=== PATIENT | female | born 1960 | race Caucasian/White ===

== ENCOUNTER → 2017-05-04 | Outpatient (CLI) | payer OTHER ==
[~2017-05-04] MED LIST: (None)20 M1 PO; ALBU.083IS IH; ALBU90OI INH; ALBU90OI6 INH; AMOCLA500 PO; ATEN25 PO; Azithromycin500 MG PO; CALCAVITD PO; CALCAVITDA PO; CIPR500 PO; CYCL10 PO; DOXY100 PO; FLUSAL5005 INH; FURO20 PO; GUAI600T33 PO; HYDR1TAB94 PO; IBUP800 PO; INSDET100 SC; K-Dur20 MEQ PO; KETO10 PO; LEVFLO500 PO; LEVSOD125 PO; LEVSOD50 PO; LISI5 PO; METF500 PO; METF500C PO; MONT10T PO; NAPR500 PO; Norco 5-325 Ta1 EACH PO; PRED10; PRED20 PO; PROCODE120 PO; Percocet 5-3251 EACH PO; RANI150 PO; ROFL500T; TIOT18 INH; TUDORZA PRESS400 MCG; Ultram50 MG PO; ZOLP10 PO; [UNRECOGNIZED DRUG - OTHER] IM
[2017-05-04 18:30] LABS: Bilirubin, Urine Neg (Neg); Blood, Urine 5+ (Neg); Glucose Qualitative, Urine 2+ (Neg); Ketones, Urine Neg (Neg); Leukocyte Esterase, Urine Neg (Neg); Nitrite, Urine Neg (Neg); Protein, Urine 1+ (Neg); Specific Gravity, Urine 1.015 (1.003-1.022); Urobilinogen, Urine NORM (Normal); pH, Urine 6.5 (5.0-8.0)
[2017-05-04 18:46] LABS: Color, Urine Yellow (P-Yellow)
[2017-05-04 18:47] LABS: Appearance, Urine Clear (Clear); Bacteria Few /hpf; Red Blood Cells, Urine 50-100 /hpf (0-2); Squamous Epithelial Cells Few /hpf (Few); White Blood Cells, Urine 0-2 /hpf (0-5)
== END | disposition home or self-care (01) ==
LOC: LAB 18:12
PROVIDERS: Nurse Practitioner Family
DX: M25.551 Pain in right hip (principal); R31.9 Hematuria, unspecified
CPT/HCPCS: 81001

== ENCOUNTER → 2017-10-26 | Outpatient (CLI) | payer OTHER ==
[~2017-10-26] MED LIST changes: -Ultram50 MG PO
== END ==
LOC: PLD 07:42 → LAB SHORT 07:42
DX: N93.9 Abnormal uterine and vaginal bleeding, unspecified (principal)
CPT/HCPCS: 88305

== ENCOUNTER → 2017-10-26 | Outpatient (CLI) | payer OTHER ==
[2017-10-28 15:08] LABS: HPV 16 Negative (Negative); HPV 18 Negative (Negative); HPV OTHER HR TYPES Negative (Negative)
== END ==
LOC: LAB SHORT 13:46 → LAB UCHC 13:46
PROVIDERS: Registered Nurse Community Health
DX: Z12.4 Encounter for screening for malignant neoplasm of cervix (principal)
CPT/HCPCS: 87624; G0123

== ENCOUNTER 2018-01-13 09:17 | Emergency (ER) | payer OTHER ==
[~2018-01-13] VITALS: Ht 160 cm; Wt 140.2 kg
[2018-01-13] MEDS ORDERED: Ultram50 MG PO (11:04)
== END 2018-01-13 11:36 | disposition home or self-care (01) ==
LOC: ER 09:17
DX: S39.011A Strain of muscle, fascia and tendon of abdomen, initial encounter (principal); I10 Essential (primary) hypertension; J44.9 Chronic obstructive pulmonary disease, unspecified; Z87.891 Personal history of nicotine dependence; Z79.899 Other long term (current) drug therapy; Z79.51 Long term (current) use of inhaled steroids; Z79.4 Long term (current) use of insulin; X58.XXXA Exposure to other specified factors, initial encounter
CPT/HCPCS: 73502; 99283-25

== ENCOUNTER 2019-09-21 09:00 | Day surgery (SDC) | payer OTHER ==
[~2019-09-21] VITALS: Ht 162 cm; Wt 147.0 kg
[~2019-09-21 09:00] MED LIST changes: +BASAGLAR K100 UNIT/1 SC; +FLUT1DIS8 INH; +GABA300 PO; +LOSA25 PO; +Pravachol40 MG PO; +Ultram50 MG PO; +VITAMIN D350 MC2 PO
--- NOTE | 2019-09-21 09:46 | NUR ---
PT INTO [facility] VIA [employer]. History, Chart, Medications and Allergies reviewed before start of procedure.Patient confirms NPO status and agrees with scheduled surgery. Patient states colon prep results clear.
--- NOTE | 2019-09-21 10:03 | NUR ---
09/21/19 1003 Leon Blackwell History, Chart, Medications and Allergies reviewed before start of procedure.MONITOR INTACT WITH CONTINUOUS PULSE OXIMETRY AND INTERMITTENT BP.3-LEAD EKG REVIEWED WITH PHYSICIAN PRIOR TO START OF PROCEDURE.O2 VIA N/C INTACT THROUGHOUT SEDATION/PROCEDURE. See Anesthesia record.
--- NOTE | 2019-09-21 10:54 | NUR ---
Patient up to Ambulate independently. Gait steady. Discharge instructions reviewed with patient. Patient verbalizes understanding. Copy given to patient to take home. Discharged via wheelchair to private car for ride home.
== END 2019-09-21 23:05 | disposition home or self-care (01) ==
LOC: ORSCMMR 09:00 → ORD 10:15 → ORSCMMR 10:15
PROVIDERS: Internal Medicine Gastroenterology
PROC: 0DBN8ZX Excision of Sigmoid Colon, Via Natural or Artificial Opening Endoscopic, Diagnostic (ICD-10-PCS; principal; 2019-09-21 10:15)
PROC: 0DBH8ZX Excision of Cecum, Via Natural or Artificial Opening Endoscopic, Diagnostic (ICD-10-PCS; principal; 2019-09-21 10:15)
DX: R19.5 Other fecal abnormalities (principal); D12.0 Benign neoplasm of cecum; K63.5 Polyp of colon; K64.4 Residual hemorrhoidal skin tags; K64.8 Other hemorrhoids; J44.9 Chronic obstructive pulmonary disease, unspecified; Z99.81 Dependence on supplemental oxygen; I10 Essential (primary) hypertension; E11.9 Type 2 diabetes mellitus without complications; E03.9 Hypothyroidism, unspecified; E66.01 Morbid (severe) obesity due to excess calories; Z68.43 Body mass index [BMI] 50.0-59.9, adult; Z79.899 Other long term (current) drug therapy; Z79.4 Long term (current) use of insulin; Z79.84 Long term (current) use of oral hypoglycemic drugs
CPT/HCPCS: 82947; 88305; J2001; J2704; J7120

== ENCOUNTER 2020-03-17 13:35 | Emergency (ER) | payer OTHER ==
[~2020-03-17] VITALS: Ht 160 cm; Wt 147.4 kg
[2020-03-17 14:14] LABS: BASOPHILS ABSOLUTE AUTO 0.05 K/mm3 (0.00-0.23); BASOPHILS PERCENT AUTO 1 % (0-2); EOSINOPHILS ABSOLUTE AUTO 0.17 K/mm3 (0.00-0.68); EOSINOPHILS PERCENT AUTO 2 % (0-6); Hematocrit 38.1 % (33.0-51.0); IMMATURE GRAN ABSOLUTE AUTO 0.03 K/mm3 (0.00-0.10); IMMATURE GRAN PERCENT AUTO 0 % (0-1); LYMPHOCYTES ABSOLUTE AUTO 2.37 K/mm3 (0.84-5.20); LYMPHOCYTES PERCENT AUTO 23 % (21-46); MONOCYTES ABSOLUTE AUTO 0.63 K/mm3 (0.16-1.47); MONOCYTES PERCENT AUTO 6 % (4-13); Mean Corpuscular HGB 26.8 pg (26.0-34.0); Mean Corpuscular HGB Conc 28.9 g/dL (31.5-36.5); Mean Corpuscular Volume 93 fL (80-100); Mean Platelet Volume 9.6 fL (9.1-12.4); NEUTROPHILS ABSOLUTE AUTO 6.91 K/mm3 (1.96-9.15); NEUTROPHILS PERCENT AUTO 68 % (41-73); Platelet Count 282 K/mm3 (150-400); RDW Coefficient Variation 13.7 % (11.7-14.2); RDW Standard Deviation 46.5 fL (35.1-46.3); Red Blood Cell Count 4.11 M/mm3 (3.80-5.20); White Blood Cell Count 10.16 K/mm3 (4.00-11.30)
[2020-03-17 14:37] LABS: Alanine Aminotransfer (ALT/SGP 14 U/L (12-78); Albumin, Blood 3.2 g/dL (3.4-5.0); Albumin/Globulin Ratio 0.7 (0.8-1.8); Alk Phos 98 U/L (50-136); Anion Gap 6 mmol/L (6-16); Aspartate Aminotrans (AST/SGOT 13 U/L (12-37); Bilirubin, Total 0.4 mg/dL (0.1-1.0); Blood Urea Nitrogen 10 mg/dL (8-24); Bun/Creatinine Ratio 15.1 (12.0-20.0); CO2, Blood 34 mmol/L (21-32); Calcium, Blood 9.1 mg/dL (8.5-10.1); Chloride, Blood 97 mmol/L (98-108); Creatinine, Blood 0.66 mg/dL (0.40-1.00); Globulin, Blood 4.3 g/dL (2.2-4.0); Glomerular Filtration Rate >60 (60-); Glucose, Blood 180 mg/dL (70-99); Potassium, Blood 4.2 mmol/L (3.5-5.5); Sodium, Blood 137 mmol/L (136-145); Total Protein, Blood 7.5 g/dL (6.4-8.2); Troponin I <0.015 ng/mL (0.000-0.040)
== END 2020-03-17 15:28 | disposition home or self-care (01) ==
LOC: ER 13:35
PROVIDERS: Physician Assistant
DX: R07.89 Other chest pain (principal); I10 Essential (primary) hypertension; J44.9 Chronic obstructive pulmonary disease, unspecified; Z79.4 Long term (current) use of insulin; Z88.6 Allergy status to analgesic agent; Z79.899 Other long term (current) drug therapy; Z87.891 Personal history of nicotine dependence
CPT/HCPCS: 36415; 71046; 80053; 83880; 84484; 85025; 99285-25

== ENCOUNTER 2020-09-22 15:03 | Emergency (ER) | payer OTHER ==
[~2020-09-22] VITALS: Ht 160 cm; Wt 135.6 kg
[2020-09-22 16:57] LABS: BASOPHILS ABSOLUTE AUTO 0.04 K/mm3 (0.00-0.23); BASOPHILS PERCENT AUTO 0 % (0-2); EOSINOPHILS PERCENT AUTO 1 % (0-6); Hematocrit 39.8 % (33.0-51.0); Hemoglobin 11.9 g/dL (11.5-16.0); IMMATURE GRAN ABSOLUTE AUTO 0.03 K/mm3 (0.00-0.10); IMMATURE GRAN PERCENT AUTO 0 % (0-1); LYMPHOCYTES ABSOLUTE AUTO 2.61 K/mm3 (0.84-5.20); LYMPHOCYTES PERCENT AUTO 27 % (21-46); MONOCYTES ABSOLUTE AUTO 0.59 K/mm3 (0.16-1.47); MONOCYTES PERCENT AUTO 6 % (4-13); Mean Corpuscular HGB 27.2 pg (26.0-34.0); Mean Corpuscular HGB Conc 29.9 g/dL (31.5-36.5); Mean Corpuscular Volume 91 fL (80-100); Mean Platelet Volume 9.6 fL (9.1-12.4); NEUTROPHILS ABSOLUTE AUTO 6.47 K/mm3 (1.96-9.15); NEUTROPHILS PERCENT AUTO 66 % (41-73); Platelet Count 260 K/mm3 (150-400); RDW Coefficient Variation 13.2 % (11.7-14.2); RDW Standard Deviation 43.1 fL (35.1-46.3); Red Blood Cell Count 4.37 M/mm3 (3.80-5.20); White Blood Cell Count 9.84 K/mm3 (4.00-11.30)
[2020-09-22 17:29] LABS: Alanine Aminotransfer (ALT/SGP 16 U/L (12-78); Albumin, Blood 3.4 g/dL (3.4-5.0); Albumin/Globulin Ratio 0.7 (0.8-1.8); Alk Phos 98 U/L (50-136); Anion Gap 4 mmol/L (6-16); Aspartate Aminotrans (AST/SGOT 17 U/L (12-37); Bilirubin, Total 0.2 mg/dL (0.1-1.0); Blood Urea Nitrogen 14 mg/dL (8-24); CO2, Blood 35 mmol/L (21-32); Calcium, Blood 9.2 mg/dL (8.5-10.1); Chloride, Blood 98 mmol/L (98-108); Creatinine, Blood 0.58 mg/dL (0.40-1.00); Globulin, Blood 4.7 g/dL (2.2-4.0); Glomerular Filtration Rate >60 (60-); Glucose, Blood 174 mg/dL (70-99); Sodium, Blood 137 mmol/L (136-145); Total Protein, Blood 8.1 g/dL (6.4-8.2)
[2020-09-22] MEDS ORDERED: IBUP600 PO (19:23)
[2020-09-22] MEDS ORDERED: CYCL10 PO (19:23)
== END 2020-09-22 19:33 | disposition home or self-care (01) ==
LOC: ER 15:03
PROVIDERS: Physician Assistant
DX: M54.9 Dorsalgia, unspecified (principal); R05 Cough; J44.9 Chronic obstructive pulmonary disease, unspecified; E11.9 Type 2 diabetes mellitus without complications; I10 Essential (primary) hypertension; Z79.84 Long term (current) use of oral hypoglycemic drugs; Z79.899 Other long term (current) drug therapy
CPT/HCPCS: 36415; 71046; 80053; 85025; 99283-25; A9270

== ENCOUNTER 2020-12-04 20:43 | Emergency (ER) | payer OTHER ==
[~2020-12-04] VITALS: Ht 160 cm; Wt 131.1 kg
[~2020-12-04 20:43] MED LIST changes: +IBUP600 PO
[2020-12-04] MEDS ORDERED: HYDROCODONE-AC1 EA14 PO (22:22)
[2020-12-04] MEDS ORDERED: TRAM50 PO (22:26)
== END 2020-12-04 22:49 | disposition home or self-care (01) ==
LOC: ER 20:43
DX: M16.12 Unilateral primary osteoarthritis, left hip (principal); G89.29 Other chronic pain; I10 Essential (primary) hypertension; J44.9 Chronic obstructive pulmonary disease, unspecified; E78.5 Hyperlipidemia, unspecified; E11.9 Type 2 diabetes mellitus without complications; Z88.8 Allergy status to other drugs, medicaments and biological substances; Z79.899 Other long term (current) drug therapy; Z79.4 Long term (current) use of insulin; W19.XXXA Unspecified fall, initial encounter
CPT/HCPCS: 73502; 96372; 99283-25; J1885

== ENCOUNTER 2021-06-27 20:10 | Emergency (ER) | payer MEDICARE, OTHER ==
[~2021-06-27] VITALS: Ht 160 cm; Wt 158.8 kg
[~2021-06-27 20:10] MED LIST changes: +HYDROCODONE-AC1 EA14 PO; +TRAM50 PO
[2021-06-27 20:39] LABS: BASOPHILS ABSOLUTE AUTO 0.05 K/mm3 (0.00-0.23); BASOPHILS PERCENT AUTO 1 % (0-2); EOSINOPHILS ABSOLUTE AUTO 0.11 K/mm3 (0.00-0.68); EOSINOPHILS PERCENT AUTO 1 % (0-6); Hemoglobin 11.6 g/dL (11.5-16.0); IMMATURE GRAN ABSOLUTE AUTO 0.05 K/mm3 (0.00-0.10); IMMATURE GRAN PERCENT AUTO 1 % (0-1); LYMPHOCYTES ABSOLUTE AUTO 2.43 K/mm3 (0.84-5.20); LYMPHOCYTES PERCENT AUTO 26 % (21-46); MONOCYTES ABSOLUTE AUTO 0.57 K/mm3 (0.16-1.47); MONOCYTES PERCENT AUTO 6 % (4-13); Mean Corpuscular HGB Conc 30.5 g/dL (31.5-36.5); Mean Corpuscular Volume 92 fL (80-100); Mean Platelet Volume 9.6 fL (9.1-12.4); NEUTROPHILS ABSOLUTE AUTO 6.32 K/mm3 (1.96-9.15); NEUTROPHILS PERCENT AUTO 66 % (41-73); Platelet Count 243 K/mm3 (150-400); RDW Coefficient Variation 13.1 % (11.7-14.2); RDW Standard Deviation 43.3 fL (35.1-46.3); Red Blood Cell Count 4.15 M/mm3 (3.80-5.20); White Blood Cell Count 9.53 K/mm3 (4.00-11.30)
[2021-06-27 20:57] LABS: Alanine Aminotransfer (ALT/SGP 16 U/L (12-78); Albumin, Blood 3.6 g/dL (3.4-5.0); Albumin/Globulin Ratio 0.9 (0.8-1.8); Alk Phos 90 U/L (50-136); Anion Gap 4 mmol/L (6-16); Aspartate Aminotrans (AST/SGOT 9 U/L (12-37); Bilirubin, Total 0.4 mg/dL (0.1-1.0); Blood Urea Nitrogen 19 mg/dL (8-24); Bun/Creatinine Ratio 25.5 (12.0-20.0); CO2, Blood 37 mmol/L (21-32); Calcium, Blood 9.4 mg/dL (8.5-10.1); Chloride, Blood 99 mmol/L (98-108); Creatinine, Blood 0.75 mg/dL (0.40-1.00); Globulin, Blood 4.1 g/dL (2.2-4.0); Glomerular Filtration Rate >60 (60-); Glucose, Blood 194 mg/dL (70-99); Potassium, Blood 3.8 mmol/L (3.5-5.5); Sodium, Blood 140 mmol/L (136-145); Total Protein, Blood 7.7 g/dL (6.4-8.2)
[2021-06-27] MEDS ORDERED: Norco 5-325 Ta1 EACH PO (22:28)
[2021-06-27 22:49] LABS: Source, Urine Clean Catch
[2021-06-27 22:51] LABS: Bilirubin, Urine Neg (Neg); Blood, Urine 1+ (Neg); Glucose Qualitative, Urine 1+ (Neg); Ketones, Urine 1+ (Neg); Leukocyte Esterase, Urine Neg (Neg); Nitrite, Urine Neg (Neg); Protein, Urine 1+ (Neg); Urobilinogen, Urine 1+ (Normal)
[2021-06-27 22:58] LABS: Appearance, Urine Hazy (Clear); Color, Urine Yellow (P-Yellow)
[2021-06-27 22:59] LABS: Amorphous Light (0-Heavy); Bacteria Few /hpf; Calcium Oxalate Crystals Few /hpf; Red Blood Cells, Urine 0-2 /hpf (0-2); Squamous Epithelial Cells Mod /hpf (Few); White Blood Cells, Urine 0-2 /hpf (0-5)
== END 2021-06-27 23:41 | disposition home or self-care (01) ==
LOC: ER 20:10
PROVIDERS: Physician Assistant
DX: M16.0 Bilateral primary osteoarthritis of hip (principal); N20.0 Calculus of kidney; I10 Essential (primary) hypertension; J45.909 Unspecified asthma, uncomplicated; Z88.8 Allergy status to other drugs, medicaments and biological substances; Z79.899 Other long term (current) drug therapy; Z79.4 Long term (current) use of insulin
CPT/HCPCS: 36415; 74176; 80053; 81001; 83690; 85025; 99284-25; A9270

== ENCOUNTER 2021-10-21 14:45 | Emergency (ER) | payer MEDICARE, OTHER ==
[~2021-10-21] VITALS: Ht 160 cm; Wt 136.1 kg
== END 2021-10-21 16:11 | disposition home or self-care (01) ==
LOC: ER 14:45
DX: S53.401A Unspecified sprain of right elbow, initial encounter (principal); J44.9 Chronic obstructive pulmonary disease, unspecified; E78.5 Hyperlipidemia, unspecified; E11.9 Type 2 diabetes mellitus without complications; I10 Essential (primary) hypertension; Z79.899 Other long term (current) drug therapy; Z79.4 Long term (current) use of insulin; Z88.6 Allergy status to analgesic agent; W01.198A Fall on same level from slipping, tripping and stumbling with subsequent striking against other object, initial encounter
CPT/HCPCS: 73080; 99283-25

== ENCOUNTER 2021-10-25 14:59 | Emergency (ER) | payer MEDICARE, OTHER | END 2021-10-25 15:52 | disposition home or self-care (01) | LOC: ER 14:59 | DX: R51.9 Headache, unspecified (principal); W18.39XA Other fall on same level, initial encounter; J44.9 Chronic obstructive pulmonary disease, unspecified; E78.5 Hyperlipidemia, unspecified; E11.9 Type 2 diabetes mellitus without complications; I10 Essential (primary) hypertension; Z88.6 Allergy status to analgesic agent; Z79.4 Long term (current) use of insulin; Z79.899 Other long term (current) drug therapy ==

== ENCOUNTER 2021-10-26 15:48 | Emergency (ER) | payer MEDICARE, OTHER ==
[~2021-10-26] VITALS: Ht 160 cm; Wt 136.1 kg
[2021-10-26] MEDS ORDERED: ONDA4ODT MM (16:35)
== END 2021-10-26 16:40 | disposition home or self-care (01) ==
LOC: ER 15:48
DX: S06.0X0A Concussion without loss of consciousness, initial encounter (principal); J44.9 Chronic obstructive pulmonary disease, unspecified; E11.9 Type 2 diabetes mellitus without complications; I10 Essential (primary) hypertension; E78.5 Hyperlipidemia, unspecified; Z79.4 Long term (current) use of insulin; Z79.899 Other long term (current) drug therapy; Z88.8 Allergy status to other drugs, medicaments and biological substances; W18.09XA Striking against other object with subsequent fall, initial encounter
CPT/HCPCS: 99283

== ENCOUNTER 2021-11-04 11:00 | Emergency (ER) | payer MEDICARE, OTHER ==
[~2021-11-04] VITALS: Ht 160 cm; Wt 136.1 kg
[~2021-11-04 11:00] MED LIST changes: +ONDA4ODT MM
[2021-11-04 12:14] LABS: BASOPHILS ABSOLUTE AUTO 0.04 K/mm3 (0.00-0.23); BASOPHILS PERCENT AUTO 0 % (0-2); EOSINOPHILS PERCENT AUTO 1 % (0-6); Hematocrit 38.5 % (33.0-51.0); Hemoglobin 11.6 g/dL (11.5-16.0); IMMATURE GRAN ABSOLUTE AUTO 0.04 K/mm3 (0.00-0.10); IMMATURE GRAN PERCENT AUTO 0 % (0-1); LYMPHOCYTES ABSOLUTE AUTO 1.84 K/mm3 (0.84-5.20); LYMPHOCYTES PERCENT AUTO 17 % (21-46); MONOCYTES ABSOLUTE AUTO 0.69 K/mm3 (0.16-1.47); MONOCYTES PERCENT AUTO 7 % (4-13); Mean Corpuscular HGB 27.9 pg (26.0-34.0); Mean Corpuscular HGB Conc 30.1 g/dL (31.5-36.5); Mean Corpuscular Volume 93 fL (80-100); Mean Platelet Volume 9.3 fL (9.1-12.4); NEUTROPHILS ABSOLUTE AUTO 7.89 K/mm3 (1.96-9.15); NEUTROPHILS PERCENT AUTO 74 % (41-73); Platelet Count 266 K/mm3 (150-400); RDW Coefficient Variation 13.3 % (11.7-14.2); RDW Standard Deviation 44.9 fL (35.1-46.3); Red Blood Cell Count 4.16 M/mm3 (3.80-5.20)
[2021-11-04 12:23] LABS: Albumin, Blood 3.1 g/dL (3.4-5.0); Albumin/Globulin Ratio 0.7 (0.8-1.8); Bilirubin, Total 0.3 mg/dL (0.1-1.0); Bun/Creatinine Ratio 23.1 (12.0-20.0); Calcium, Blood 9.3 mg/dL (8.5-10.1); Creatinine, Blood 0.52 mg/dL (0.40-1.00); Globulin, Blood 4.4 g/dL (2.2-4.0); Potassium, Blood 4.3 mmol/L (3.5-5.5); Total Protein, Blood 7.5 g/dL (6.4-8.2)
== END 2021-11-04 16:20 | disposition home or self-care (01) ==
LOC: ER 11:00
PROVIDERS: Physician Assistant
DX: R42 Dizziness and giddiness (principal); J44.9 Chronic obstructive pulmonary disease, unspecified; E78.5 Hyperlipidemia, unspecified; E11.9 Type 2 diabetes mellitus without complications; I10 Essential (primary) hypertension; Z91.81 History of falling; Z88.6 Allergy status to analgesic agent; Z79.899 Other long term (current) drug therapy; Z79.4 Long term (current) use of insulin
CPT/HCPCS: 71046; 80053; 85025; 93005; 93010; A9270

== ENCOUNTER 2021-12-09 14:03 | Emergency (ER) | payer MEDICARE, OTHER ==
[~2021-12-09] VITALS: Ht 160 cm; Wt 1.4 kg
[~2021-12-09 14:03] MED LIST changes: -Pravachol40 MG PO; +Pravastatin Sod80 MG PO
[2021-12-09 17:09] LABS: BASOPHILS ABSOLUTE AUTO 0.03 K/mm3 (0.00-0.23); BASOPHILS PERCENT AUTO 0 % (0-2); EOSINOPHILS ABSOLUTE AUTO 0.07 K/mm3 (0.00-0.68); EOSINOPHILS PERCENT AUTO 1 % (0-6); Hematocrit 34.6 % (33.0-51.0); Hemoglobin 9.7 g/dL (11.5-16.0); IMMATURE GRAN ABSOLUTE AUTO 0.09 K/mm3 (0.00-0.10); IMMATURE GRAN PERCENT AUTO 1 % (0-1); LYMPHOCYTES ABSOLUTE AUTO 1.93 K/mm3 (0.84-5.20); LYMPHOCYTES PERCENT AUTO 17 % (21-46); MONOCYTES ABSOLUTE AUTO 0.77 K/mm3 (0.16-1.47); MONOCYTES PERCENT AUTO 7 % (4-13); Mean Corpuscular HGB 27.8 pg (26.0-34.0); Mean Corpuscular Volume 99 fL (80-100); Mean Platelet Volume 9.4 fL (9.1-12.4); NEUTROPHILS ABSOLUTE AUTO 8.34 K/mm3 (1.96-9.15); NEUTROPHILS PERCENT AUTO 74 % (41-73); Platelet Count 243 K/mm3 (150-400); Red Blood Cell Count 3.49 M/mm3 (3.80-5.20); White Blood Cell Count 11.23 K/mm3 (4.00-11.30)
[2021-12-09 17:48] LABS: Alanine Aminotransfer (ALT/SGP 29 U/L (12-78); Albumin/Globulin Ratio 0.8 (0.8-1.8); Alk Phos 89 U/L (50-136); Anion Gap Unable to Calculate mmol/L (6-16); Aspartate Aminotrans (AST/SGOT 12 U/L (12-37); Bilirubin, Total 0.2 mg/dL (0.1-1.0); Blood Urea Nitrogen 14 mg/dL (8-24); Bun/Creatinine Ratio 21.4 (12.0-20.0); Calcium, Blood 8.9 mg/dL (8.5-10.1); Chloride, Blood 94 mmol/L (98-108); Creatinine, Blood 0.65 mg/dL (0.40-1.00); Globulin, Blood 3.8 g/dL (2.2-4.0); Glomerular Filtration Rate 99 (60-); Glucose, Blood 221 mg/dL (70-99); Potassium, Blood 4.4 mmol/L (3.5-5.5); Sodium, Blood 139 mmol/L (136-145); Total Protein, Blood 6.8 g/dL (6.4-8.2)
[2021-12-09 17:50] LABS: CO2, Blood >45 mmol/L (21-32)
[2021-12-09 18:18] LABS: Percent Saturation 7.9 % (15.0-50.0)
[2021-12-09 18:49] LABS: Base Excess Venous 22.4 mmol/L; PCO2 Venous 94.1 mmHg (38-42); pH Blood Venous 7.32 (7.34-7.37)
[2021-12-11 09:25] LABS: HAPTOGLOBIN 307 mg/dL (37-355)
[2021-12-16 07:09] LABS: (LD) FRACTION 1 20 % (17-32); (LD) FRACTION 2 44 % (25-40); (LD) FRACTION 3 21 % (17-27); (LD) FRACTION 4 7 % (5-13); (LD) FRACTION 5 8 % (4-20); LDH 210 IU/L (119-226)
== END 2021-12-09 20:06 | disposition home or self-care (01) ==
LOC: ER 14:03
PROVIDERS: Family Medicine
DX: E87.22 Chronic metabolic acidosis (principal); E11.65 Type 2 diabetes mellitus with hyperglycemia; J44.9 Chronic obstructive pulmonary disease, unspecified; I10 Essential (primary) hypertension; Z88.8 Allergy status to other drugs, medicaments and biological substances; Z79.899 Other long term (current) drug therapy; Z79.4 Long term (current) use of insulin; Z79.890 Hormone replacement therapy; Z87.891 Personal history of nicotine dependence
CPT/HCPCS: 80053; 82728; 82803; 83010; 83036; 83540; 83550; 83615; 83625; 84443; 85025; 99285

== ENCOUNTER 2021-12-12 21:11 | Inpatient (IN) | payer MEDICARE, OTHER ==
[~2021-12-12] VITALS: Ht 160 cm; Wt 138.5 kg
[2021-12-12 21:59] LABS: BASOPHILS ABSOLUTE AUTO 0.06 K/mm3 (0.00-0.23); BASOPHILS PERCENT AUTO 0 % (0-2); EOSINOPHILS ABSOLUTE AUTO 0.04 K/mm3 (0.00-0.68); EOSINOPHILS PERCENT AUTO 0 % (0-6); Hematocrit 39.2 % (33.0-51.0); Hemoglobin 11.2 g/dL (11.5-16.0); IMMATURE GRAN PERCENT AUTO 2 % (0-1); LYMPHOCYTES ABSOLUTE AUTO 1.48 K/mm3 (0.84-5.20); LYMPHOCYTES PERCENT AUTO 11 % (21-46); MONOCYTES ABSOLUTE AUTO 0.85 K/mm3 (0.16-1.47); MONOCYTES PERCENT AUTO 6 % (4-13); Mean Corpuscular HGB 27.9 pg (26.0-34.0); Mean Corpuscular HGB Conc 28.6 g/dL (31.5-36.5); Mean Corpuscular Volume 98 fL (80-100); Mean Platelet Volume 9.1 fL (9.1-12.4); NEUTROPHILS ABSOLUTE AUTO 11.06 K/mm3 (1.96-9.15); NEUTROPHILS PERCENT AUTO 81 % (41-73); NRBC ABSOLUTE 0.05 K/mm3 (0.00-0.02); NRBC Auto 0.4 /100 WBC (0.0-0.2); Platelet Count 283 K/mm3 (150-400); RDW Coefficient Variation 15.2 % (11.7-14.2); RDW Standard Deviation 54.1 fL (35.1-46.3); Red Blood Cell Count 4.02 M/mm3 (3.80-5.20); White Blood Cell Count 13.69 K/mm3 (4.00-11.30)
[2021-12-12 22:19] LABS: Alanine Aminotransfer (ALT/SGP 48 U/L (12-78); Albumin, Blood 3.3 g/dL (3.4-5.0); Albumin/Globulin Ratio 0.7 (0.8-1.8); Alk Phos 121 U/L (50-136); Aspartate Aminotrans (AST/SGOT 26 U/L (12-37); Bilirubin, Total 0.6 mg/dL (0.1-1.0); Blood Urea Nitrogen 15 mg/dL (8-24); Bun/Creatinine Ratio 22.2 (12.0-20.0); Calcium, Blood 9.3 mg/dL (8.5-10.1); Chloride, Blood 88 mmol/L (98-108); Creatinine, Blood 0.68 mg/dL (0.40-1.00); Globulin, Blood 4.6 g/dL (2.2-4.0); Glomerular Filtration Rate 98 (60-); Glucose, Blood 301 mg/dL (70-99); Potassium, Blood 4.4 mmol/L (3.5-5.5); Sodium, Blood 135 mmol/L (136-145); Total Protein, Blood 7.9 g/dL (6.4-8.2)
[2021-12-12 22:20] LABS: Anion Gap Unable to Calculate mmol/L (6-16)
[2021-12-12 22:21] LABS: CO2, Blood >45 mmol/L (21-32)
[2021-12-12 23:02] LABS: Base Excess Venous 23.2 mmol/L; Bicarbonate Venous 43.7 mmol/L (24.0-30.0); PCO2 Venous 80.8 mmHg (38-42); pH Blood Venous 7.38 (7.34-7.37)
[2021-12-13 02:11] LABS: PO2 Arterial 99.3 mmHg (80-100)
[2021-12-13 02:13] LABS: pH Blood Arterial 7.24 (7.35-7.45)
[2021-12-13 02:14] LABS: PCO2 Arterial > 105 mmHg (35-45)
[2021-12-13 02:27] LABS: Source, Urine Straight Cath
[2021-12-13 02:29] LABS: Blood, Urine 3+ (Neg); Glucose Qualitative, Urine 2+ (Neg); Ketones, Urine 1+ (Neg); Leukocyte Esterase, Urine 3+ (Neg); Nitrite, Urine Neg (Neg); Protein, Urine 3+ (Neg); Specific Gravity, Urine 1.025 (1.003-1.022); Urobilinogen, Urine 1+ (Normal)
[2021-12-13 02:44] LABS: Appearance, Urine Hazy (Clear); Bilirubin, Urine 1+ (Neg); Color, Urine Amber (P-Yellow)
[2021-12-13 02:45] LABS: Amorphous Light (0-Heavy); Bacteria Mod /hpf; Hyaline Casts 25-50 /lpf (0-2); Mucus Heavy (0-Heavy); Squamous Epithelial Cells Not Seen /hpf (Few); White Blood Cells, Urine TNTC /hpf (0-5)
[2021-12-13 10:14] LABS: PCO2 Arterial 63.4 mmHg (35-45); PO2 Arterial 53.3 mmHg (80-100); pH Blood Arterial 7.48 (7.35-7.45)
--- NOTE | 2021-12-13 17:45 | NUR ---
SHIFT SUMMARY PT ALERT AND CONFUSED. PT ABLE TO GIVE NAME AND BUT UNABLE TO STATE WHAT FACILITY SHE IS IN EVEN AFTER BEING TOLD THAT SHE IS AT [facility] MULTIPLE TIMES THROUGHOUT THE DAY. PT HAS HAD SOME CONFUSION STATING "I DON'T KNOW WHO THESE GUYS ARE THAT ARE COMING IN HERE OFF THE STREET." WHEN ASKING WHO SHE IS REFERING TO, THE PT REPONDS "ALL THESE PEOPLE COMING IN HERE. THERE IS PEOPLE COMING IN HERE AND I DON'T WANT NO PART OF IT WITH THE HEAD DEIRDRE NOT BEING HERE." THIS RN ATTEMPTED TO REORIENT PT OF WHERE SHE IS BUT PT WAS FIXATED ON "THE PEOPLE I DON'T." THIS RN ASSURD PT THAT ONLY MEDICAL WILL BE ENTERING HER ROOM TO HELP HER. PT WAS ON BIPAP 35% THIS MORNING, TITRATED TO 4L NC WHICH IN HER BASE LINE, PT SATTING IN THE 90'S. PT HYPERTENSIVE THIS AM, BP'S STABLE THIS EVENING. OTHER VSS THROUGHOUT SHIFT.NO REPORT OF CHEST PAIN/PRESSURE THROUGHOUT SHIFT. PT HAD BEDBATH DONE AND PUREWIC CHANGED. DURING BEDBATH, PT FOUND TO BE INCONTINENT OF LIQUID STOOL.
[2021-12-13] MEDS ORDERED: LEVSOD25 PO (19:59)
[2021-12-13] MEDS ORDERED: AZIT250 PO (20:00)
[2021-12-13] MEDS ORDERED: MYRBETRIQ25 MG PO (20:03)
[2021-12-13] MEDS ORDERED: BUPR150ER PO (20:05)
--- NOTE | 2021-12-13 21:41 | NUR ---
SWITCHED TO BIPAP PT WAS ON 6L NC AND WHEN SLEEPING HER SPO2 DROPPED TO 74%. SHE WAS PLACED ON HER BIPAP @ 16/8 35% O2. SPO2 NOW >94%. PT IS RESTING, BED IN LOW, CALL LIGHT IN REACH, 3 SIDE RAILS UP.
--- NOTE | 2021-12-13 21:52 | NUR ---
HS GLUCOSE 368. DR. Hall CALLED AT 1945 AND INSULIN SWITCHED TO AC HS LOW SLIDING SCALE. 4 UNITS OF INSULIN WAS GIVEN.
--- NOTE | 2021-12-14 05:54 | NUR ---
SHIFT SUMMARY PT IS A&OX4, BUT ABOUT 0500 THIS AM THE PT BEGAN TO GET PARANOID. SHE WAS GETTING IRRITABLE ABOUT PEOPLE COMING IN HER ROOM AND DOING THINGS. SHE HAS BEEN SLEEPING MOST OF THE NIGHT WHILE ON THE CPAP. SHE IS CURRENTLY ON 3L NC W/ SPO2 @ 95% BECAUSE SHE WANTED A BEAK FROM THE HIGH PRESSURE. SHE HAS BEEN HYPERTENSIVE T/O THE SHIFT AND AN ORDER OF 10MG HYDRALAZINE IV WAS GIVEN. PT BP HAS GONE DOWN SLIGHTLY. PT IS ON BEDREST, Q2 TURNS IN BED, ON AN ADA DIET, AC/HS GLUCOSE CHECKS, AND HAS BEEN CALLING [employer] T/O THE NIGHT. WILL CONTINUE TO MONITOR UNTIL REPORT IS GIVEN TO THE ONCOMING SHIFT RN. SEE NOTES FOR UPDATES.
--- NOTE | 2021-12-14 06:22 | NUR ---
PER PT REQUEST SHE WAS PUT BACK ON THE BIPAP. SPO2 >93%.
--- NOTE | 2021-12-14 10:28 | NUR ---
AM NOTE: PATIENT ALERT AND ORIENTED X3-4. ABLE TO ANSWER ALL QUESTIONS APPROPRIATELY. NUMBNESS TO BILATERAL FEET, CHRONIC NEUROPATHY. OVERALL WEAK. BEDREST AT THIS TIME. Q2 TURNING IN PLACE. ON 4L NASAL CANNULA SATING MID 90'S. WEARING BIPAP WHEN SLEEPING. SOB WHEN TALKING. LUNGS SOUNDING CLEAR AND DIM. TELE SHOWING SINUS RHYTHM WITH HR 80-90'S. DENIES CHEST PAIN/PRESSURE. BP ELEVATED THIS AM, HOME MEDS ORDERED. PHOTOGRAPHIC RESTORER IN ROOM AT THIS TIME. DENIES ABDOMINAL PAIN/NAUSEA. EATING WELL. PUREWICK IN PLACE CHANGED THIS AM. ANDIE CARE COMPLETED. SKIN FOLDS RED, CLEANED AND POWDERED. CALL LIGHT IN REACH. WILL CONTINUE TO MONITOR.
--- NOTE | 2021-12-14 11:29 | NUR ---
AFTERNOON BP ELEVATED WELL BLOOD SUGAR. THIS RN PLACED CALL TO DR. LOUIS. ORDERS TO UPGRADE SHORT ACTING INSULIN TO MEDIUM CORRECTION SLIDING SCALE. ORDERS IN PLACE. NO NEW ORDERS FOR THIS RN REGARDING BP. PATIENT SLEEPING AT THIS TIME WITH BIPAP IN PLACE. ECHO COMPLETED.
--- NOTE | 2021-12-14 18:07 | NUR ---
SHIFT SUMMARY: NO ACUTE CHANGES THROUGHOUT SHIFT. SEE PREVIOUS NOTE FOR UPDATES. BP IMPROVED THROUGHOUT SHIFT. DENIES CHEST PAIN/PRESSURE. TELE CONTINUES TO SHOW SINUS RHYTHM 80-90'S. ON 4L NASAL CANNULA MOST OF SHIFT SATING MID-HIGH 90'S. WEARING BIPAP WHEN SLEEPING. DENIES ABDOMINAL PAIN/NAUSEA. TOLERATING PO DIET. PUREWICK IN PLACE. Q2 TURNING. ACHS BLOOD SUGARS. CALL LIGHT IN REACH. WILL CONTINUE TO MONITOR AND REPORT OFF TO ONCOMING RN.
[2021-12-15 04:23] LABS: Base Excess Venous 21.9 mmol/L; Bicarbonate Venous 41.4 mmol/L (24.0-30.0); PCO2 Venous > 105 mmHg (38-42); pH Blood Venous 7.25 (7.34-7.37)
[2021-12-15 04:31] LABS: Hematocrit 40.8 % (33.0-51.0); Hemoglobin 11.3 g/dL (11.5-16.0); Mean Corpuscular HGB 27.4 pg (26.0-34.0); Mean Corpuscular HGB Conc 27.7 g/dL (31.5-36.5); Mean Corpuscular Volume 99 fL (80-100); Mean Platelet Volume 9.2 fL (9.1-12.4); Platelet Count 275 K/mm3 (150-400); RDW Coefficient Variation 15.2 % (11.7-14.2); RDW Standard Deviation 55.9 fL (35.1-46.3); Red Blood Cell Count 4.13 M/mm3 (3.80-5.20); White Blood Cell Count 7.22 K/mm3 (4.00-11.30)
--- NOTE | 2021-12-15 04:45 | NUR ---
CALLED DR. KEITH IN [facility] TO CRITICAL VBG RESULTS. PT WAS PLACED BACK ON BIPAP AND REPEAT VBG WAS ORDERED FOR 829
[2021-12-15 05:06] LABS: Blood Urea Nitrogen 22 mg/dL (8-24); Bun/Creatinine Ratio 34.8 (12.0-20.0); Calcium, Blood 8.1 mg/dL (8.5-10.1); Chloride, Blood 91 mmol/L (98-108); Creatinine, Blood 0.63 mg/dL (0.40-1.00); Glomerular Filtration Rate 100 (60-); Glucose, Blood 294 mg/dL (70-99); Potassium, Blood 5.3 mmol/L (3.5-5.5); Sodium, Blood 141 mmol/L (136-145)
[2021-12-15 05:07] LABS: Anion Gap Unable to Calculate mmol/L (6-16); CO2, Blood >45 mmol/L (21-32)
--- NOTE | 2021-12-15 06:04 | NUR ---
SHIFT SUMMARY PT IS A&OX4, Q2 TURN, HAS A PURWICK THAT HAS BEEN CHANGED AT THE BEGINING OF THE SHIFT, AND SHE WAS ON 4-6L NC T/O MOST OF THE NIGHT. SHE WAS ON AND OFF THE BIPAP, BUT AFTER RECIEVING VBG LABS, PH 7.25 C02 >105 HCO3 41.4, SHE NEEDS TO STAY ON THE BIPAP. REPEAT VBG IS ORDERED FOR 0830 TODAY. SHE IS ON 18/8 @ 35% FOR BIPAP SETTINGS. PT VS HAVE BEEN STABLE, SHE SLEPT MOST OF THE NIGHT, AND SHE HAS HAD NO COMPLAINTS T/O THE NIGHT. DURING HS GLUCOSE CHECK SHE NEEDED 1 UNIT OF INSULIN FOR A CBG OF 261 ON AM LABS IT WAS 294. WILL CONTINUE TO MONITOR UNTIL REPORT IS GIVEN TO THE ONCOMING SHIFT RN. SEE NOTES FOR UPDATES.
--- NOTE | 2021-12-15 06:24 | NUR ---
TERESA WAS CHANGED THIS AM AT ABOUT 0550 FOR THE SECOND TIME
[2021-12-15 08:04] LABS: Base Excess Venous 22.5 mmol/L; Bicarbonate Venous 42.7 mmol/L (24.0-30.0); PCO2 Venous 87.8 mmHg (38-42); pH Blood Venous 7.35 (7.34-7.37)
--- NOTE | 2021-12-15 17:03 | NUR ---
CARE NOTE PT HAS REMAINED ALERT AND ORIENTED X 4, SHE USES THE CALL LIGHT APPROPRIATELY AND IS ABLE TO FOLLOW DIRECTION. BP AND HR STABLE. SPO2 >95% VIA BIPAP, PRESSURE 18/8 W/ FIO2 @35%. SHE HAS HAD INTERMITTENT BREAKS FROM BIPAP AND BEEN PLACED ON 4L VIA NC, SPO2 93-95% ON NC. BREAKS HAVE BEEN FOR EATING/DRINKING AND TAKING ORAL MEDICATIONS. SHE HAS DENIED FEELING OF CHEST PAIN/PRESSURE, LIGHTHEADEDNESS/DIZZINESS. NO COUGH NOTED. SHE REPORTS BILATERAL LOWER EXTREM NEUROPATHY AND TINGLING WHICH CAN BE PAINFUL PER PT REPORT. POWERGLIDE IN LUE IS SALINE LOCKED. PURE WICK IS PATENT AND CONNECTED TO SUCTION DUE TO INCONTINENCE/DIURESING. SOMNOLENCE HAS IMPROVED DURING SHIFT, PT HAS REMAINED AWAKE FOR MAJORITY OF SHIFT. SEE LABS FOR PCO2 TRENDS. PT IS NOW WATCHING TV, CALL LIGHT IS WITHIN REACH, BED IN LOW. WILL CONTINUE TO MONITOR UNTIL REPORT GIVEN.
--- NOTE | 2021-12-15 21:23 | NUR ---
CARE ASSUMPTION: PATIENT SITTING UP IN BED WITH BIPAP IN PLACE, O2 SATS >94%. PATIENT REQUESTS WATER AND TO BRUSH TEETH. DENIES CHEST PAIN/N/V/D. CBG 275. MEDICATED PER EMAR. PATIENT UPSET BECAUSE SHE STATES SHE ANGELIC IN A WHITE EXTENSION CORD AND STAFF SENT IT TO [facility]. [facility] STAFF UNAWARE OF THIS AND CANNOT FIND EXTENSION CORD. BED LOW WITH CALL LIGHT IN REACH.
[2021-12-16 05:05] LABS: Albumin, Blood 2.9 g/dL (3.4-5.0); Blood Urea Nitrogen 24 mg/dL (8-24); Bun/Creatinine Ratio 38.6 (12.0-20.0); Calcium, Blood 9.2 mg/dL (8.5-10.1); Chloride, Blood 86 mmol/L (98-108); Creatinine, Blood 0.62 mg/dL (0.40-1.00); Glomerular Filtration Rate 101 (60-); Glucose, Blood 294 mg/dL (70-99); Phosphorus, Blood 3.7 mg/dL (2.5-4.9); Potassium, Blood 4.8 mmol/L (3.5-5.5); Sodium, Blood 136 mmol/L (136-145)
[2021-12-16 05:07] LABS: Anion Gap Unable to Calculate mmol/L (6-16); CO2, Blood >45 mmol/L (21-32)
[2021-12-16 05:14] LABS: PCO2 Arterial 79.6 mmHg (35-45); PO2 Arterial 75.6 mmHg (80-100)
--- NOTE | 2021-12-16 05:36 | NUR ---
SHIFT SUMMARY: PATIENT A&O X4, DENIES CHEST PAIN/N/V/D, PUREWICK IN PLACE DRAINING TO SUCTION. PATIENT HAS KEPT BIPAP IN PLACE WITH 5-15 MIN BREAK TO DRINK WATER OR TAKE MEDICATIONS. VS WNL, AFEBRILE, O2 SATS >92% ON BIPAP 18/8 FIO2 35%. NO ADVERSE EVENTS THIS SHIFT. PATIENT USES CALL LIGHT APPROPRIATELY. BED LOW WITH CALL LIGHT IN REACH. PUREWICK CHANGED X2. WILL CONTINUE TO MONITOR UNTIL AM SHIFT CHANGE AND REPORT GIVEN.
--- NOTE | 2021-12-16 17:37 | NUR ---
END OF SHIFT NOTE PT A&O X4. VSS. SPO2 > 92% ON 2-4L NC W/ PT REPORT OF 4L NC @ BASELINE. MONITOR SHOWING SR-ST, HR 70s-110s. PT 2 PERSON ASSIST OOB. PUREWICK DRAINING CLEAR YELLOW URINE. NO EVENTS THIS SHIFT.
--- NOTE | 2021-12-17 03:41 | NUR ---
CARE ASSUMPTION: PATIENT ON 4L NC O2 SATS > 95%. AFEBRILE, VS WNL, DENIES CHEST PAIN/SOB/N/V/D. PATIENT REQUESTS BED BATH AND THEN DECLINES LATER. PATIENT IS WIPED DOWN, NEW BEDDING PLACED, AND ATTENDS CHANGED. PUREWICK DRAINING TO SUCTION. PATIENT SLEEPING WITH BIPAP IN PLACE FROM 2229 TO CURRENT. MEDICATED PER EMAR. BED LOW WITH CALL LIGHT IN REACH.
--- NOTE | 2021-12-17 06:04 | NUR ---
SHIFT SUMMARY: VS WNL ON BIPAP/4L NC. PATIENT SLEPT WITH BIPAP IN PLACE T/O NOC. MEDICATED PER EMAR. PATIENT ASSISTED WITH REPOSITIONING AT 0500 - FULL BED CHANGE. USES CALL LIGHT APPROPRIATELY. POWERGLIDE PATENT AND DRAWS. PUREWICK CHANGED PER PROTOCOL. NO ADVERSE EVENTS THIS SHIFT. BED LOW WITH CALL LIGHT IN REACH. WILL CONTINUE TO MONITOR UNTIL REPORT GIVEN TO AM RN.
[2021-12-17 06:13] LABS: Albumin, Blood 2.8 g/dL (3.4-5.0); Anion Gap 5 mmol/L (6-16); Blood Urea Nitrogen 25 mg/dL (8-24); Bun/Creatinine Ratio 40.5 (12.0-20.0); CO2, Blood 44 mmol/L (21-32); Calcium, Blood 9.3 mg/dL (8.5-10.1); Chloride, Blood 88 mmol/L (98-108); Creatinine, Blood 0.62 mg/dL (0.40-1.00); Glomerular Filtration Rate 101 (60-); Glucose, Blood 266 mg/dL (70-99); Potassium, Blood 4.6 mmol/L (3.5-5.5); Sodium, Blood 137 mmol/L (136-145)
--- NOTE | 2021-12-17 17:09 | NUR ---
END OF SHIFT NOTE / MEDICAL STATUS PT A&O X4. VSS. SPO2 > 92% ON 2-4L NC. PT MADE MEDICAL NO TELE STATUS TODAY. MONITOR SHOWING NSR PRIOR TO TELEMETRY REMOVAL. PT UP TO CHAIR W/ 1 PERSON ASSIST. PUREWICK REMOVED.
--- NOTE | 2021-12-18 06:36 | NUR ---
SHIFT SUMMARY PT IS A&OX4, NEEDS MIN ASSISTANCE MOVING IN BED, HAS A PURWICK THAT WAS CHANGED THIS AM ABOUT 0500, AND HAS HAS NO COMPLAINTS THIS SHIFT. PT HAS BEEN BETWEEN 4-5L NC AND HER BIPAP 18/8 @ 35% TONIGHT. SHE DESATURATED TO THE 80'S WHEN TAKING HER MEDICATIONS, BUT RECOVERED AFTER A FEW DEEP BREATHS. OTHER THEN THE ONE DESATURATION SHE KEPT HER SP02 >90%. SHE HAS SLEPT MOST OF THE NIGHT, HAS HER BED IN LOW, AND HER CALL LIGHT IS IN REACH. WILL CONTINUE TO MONITOR UNTIL REPORT IS GIVEN TO TO THE ONCOMING SHIFT RN. SEE NOTES FOR UPDATES.
--- NOTE | 2021-12-18 18:34 | NUR ---
END OF SHIFT NOTE PT CONTINUES MEDICAL NO TELE STATUS. A&O X4. VSS. SPO2 > 92% ON HOME USE OF 4L NC. BIPAP AT BEDSIDE FOR NOC USE. PT MORE MOBILE IN RM, STRENGTH IMPROVING. PT AWAITING DELIVERY OF TRILOGY FOR HOME USE. PT ALSO AWAITING SNF PLACEMENT.
--- NOTE | 2021-12-19 04:44 | NUR ---
SHIFT SUMMARY & TRANSFER PT ARRIVED FROM PCU AT APPROX 0400, RCVD REPORT FROM FERMIN CALLEJAS IN PCU. SHE IS HERE FOR ACUTE ON CHRONIC RESP FAILURE AND AMS, PER PCU REPORT THE AMS HAS IMPROVED GREATLY SINCE MAINTANING O2 SATS. PT IS CONT/INCONT AND WAS CLEANED AND CHANGED AFTER ARRIVAL. PT IS ON 3L O2 AND IS MAINTANING SAT > 92 ON CONTINOUS OXIMETRY. PT IS CURRENTLY AOX4, WIDE AWAKE AND RESTING COMFORTABLY IN HER BED. PT IS PLEASANT AND COOPERATIVE WITH CARE.
--- NOTE | 2021-12-19 18:01 | NUR ---
SHIFT SUMMARY PATIENT DENIES PAIN, NAUSEA, AND SHORTNESS OF BREATH. PATIENT IS A SBA WITH A FWW. PATIENT IS ON 3L VIA N/C. PATIENT MAINTAINS SATURATIONS ABOVE 90%. PATIENT WEARS CPAP AT NIGHT. PATIENT WORKED WITH PT TODAY. RECOMMENDING SNF. PATIENT INSULIN CHANGED DUE TO HIGH CBG. POWERGLIDE TO NORIS. PATIENT IS EATING AND DRINKING WELL. PATIENT IS PLEASANT AND COOPERATIVE WITH CARE.
--- NOTE | 2021-12-20 07:31 | NUR ---
SHIFT SUMMARY PT REPORTED SHE HAD HER FIRST BM IN A WHILE EARLY IN THE NIGHT. SHE WAS ON 3L O2 AND CONTINUOUS O2 MONITORING. PER DAY NURSE SHE WAS CLEARED BY PT TO BE INDEPENDENT IN THE ROOM USING HER FWW. DURING ONE TRIP TO THE BATHROOM SHE DESATTED TO THE MID 80'S, INCREASED HER O2 TO 4L DURING AMBULATOIN. PT WORE CPAP AT NIGHT WHILE ALSEEP AND MAINTANED O2 SAT > 90%. PT SLEPT WELL W/O MOST OF THE NIGHT. NO ACUTE EVENTS, VSS, PT PLEASANT AND COOPERATIVE WITH CARE.
--- NOTE | 2021-12-20 08:00 | NUR ---
pt sitting up in chair, a/ox3, pleasant and cooperative with care, follows commands well, denies pain, states she's slowly improving, lungs are clear dim in bases, resp even and unlabored, no cough noted, currently on 4 liters 02 via n/c, hrr, no edema noted, ppp+1, cap refill <3sec, vs stable, afebrile, iv is power glide to jolene, site is clear and patent, btx4, abd flat soft nontender, voids without diff, skin c/w/d, maew, low, desats with activity, call light in reach. takes po meds without diff.
[2021-12-20 14:41] LABS: Bun/Creatinine Ratio 43.1 (12.0-20.0); Calcium, Blood 9.1 mg/dL (8.5-10.1); Creatinine, Blood 0.74 mg/dL (0.40-1.00); Potassium, Blood 4.7 mmol/L (3.5-5.5)
--- NOTE | 2021-12-20 18:29 | NUR ---
pt sitting up on the side of the bed eating dinner, her son came to visit, she was excited about that, ambulating to the bathroom, with a walker pretty well, no further changes this shift. call light in reach.
--- NOTE | 2021-12-21 04:48 | NUR ---
SHIFT SUMMARY; PT IS AXO X4. PT WAS ON 4L NC SATING 93-95% UNTIL BEDTIME WHEN HER CPAP WAS PUT INTO PLACE. OVERNIGHT THE PT'S OXYGEN SATURATION REMAINED >90%. THE PT IS KIND TOWARD STAFF AND COOPERATIVE WITH CARE. PT IS A STAND BY ASSIST WITH THE USE OF A FWW WHILE AMBULATING. PT IS CONTINENT WITH INTERMITTEN INCONTINECE R/T COUGHING OR CERTAIN POSITION CHANGES. PT MEDICATED PER EMAR FOR HIP PAIN AROUND 0000. PT CURRENTLY WAITING ON TRILLOGY AND THEN DC PLACEMENT TO SNIFF. PT IS CURRENTLY RESTING IN BED SLEEPING WITH THE BED IN THE LOWEST POSITION AND THE CALL LIGHT IN REACH. NO ACUTE MEDICAL CHANGES OVERNIGHT.
--- NOTE | 2021-12-21 07:44 | NUR ---
pt sitting up in bed watching tv, states she feels pretty good this am, slept ok last night, breathing is ok, currently on 4 liters 02 via n/c, denies cough, lungs have a faint exp wheeze t/o, dim in bases, resp even and unlabored, hrr, radial and ppp+2, cap refill <3sec, vs stable, afebrile, iv is power glide to jolene will remove today, btx4, abd flat soft nonteder, voids without diff, has bouts of stress incont, reports bm a few days ago but is on laxatives, and this is normal for her, skin c/w/d, crystal, uses a front wheeled walker to ambulate with sba, gait noted to be steady, low, call light in reach.
--- NOTE | 2021-12-21 11:17 | NUR ---
removed pt power glide per orders. iv intact, dressed with 2x2 and coban after holding pressure. pt sitting up in a chair, tolerated well. call light in reach.
--- NOTE | 2021-12-21 18:04 | NUR ---
pt up and down in room indep, doing well, states she's feeling good, no complaints or acute changes this shift, call light in reach.
--- NOTE | 2021-12-22 04:40 | NUR ---
SHIFT SUMMARY; PT GOT UP TWICE INDEPENDENTLY THIS SHIFT TO AMBULATE TO THE RESTROOM WITH THE USE OF A FWW. THE PT REMAINS OF 4L NC AT BASELINE. THE PT DID HAVE A ACCIDENT AROUND 0330 THAT REQUIRED A BED CHANGE. THE PT IS CURRENTLY RESTING IN BED, THE BED IS IN THE LOWEST POISTION AND CALL LIGHT IS WITHIN REACH. NO ACUTE MEDICAL CHANGES THROUGHOUT THE ENTIRE SHIFT. HAND OFF REPORT TO FOLLOW TO THE ONCOMING RN.
--- NOTE | 2021-12-23 04:40 | NUR ---
SHIFT SUMMARY PATIENT IS ALERT AND ORIENTED. PATIENT HAS HAD NO ACUTE EVENTS THIS SHIFT. VITAL SIGNS REVIEWED. PATIENT HAS BEEN RESTING COMFORTABLY MOST OF SHIFT. PATIENT HAS NOT HAD ANY COMPLAINTS OF PAIN, NAUSEA, VOMITTING OR SOB THIS SHIFT. BED IN LOWEST AND LOCKED POSITION. CALL LIGHT IN PLACE. WILL MONITOR UNTIL SHIFT CHANGE.
--- NOTE | 2021-12-23 18:40 | NUR ---
SHIFT SUMMARY PT UP TO BATHROOMM INDEPENDENTLY USING FWW. RESTING ON AND OFF. NO REPORTS OF RESP DISTRESS. CONTINUOUS PULSE OX ON AND REMOVES IT WHEN UP TO BATHROOM. AWAITNG PLACEMENT WITH TRILOGY.
--- NOTE | 2021-12-24 04:17 | NUR ---
SHIFT SUMMARY PATIENT IS ALERT AND ORIENTED. PATIENT HAS HAD NO COMPLAINTS OF NAUSEA, SOB OR VOMMITTING THIS SHIFT. PATIENT HAS COMPLAINED OF PAIN AND MEDICATED PER EMAR. VITAL SIGNS REVIEWED. PATIENT HAS BEEN RESTING COMFORTABLY WITH CPAP ON MOST OF NIGHT. BED IN LOCKED AND LOWEST POSITION. CALL LIGHT IN PLACE. WILL MONITOR UNTIL SHIFT CHANGE.
--- NOTE | 2021-12-24 19:48 | NUR ---
SHIFT SUMMARY 61-YEAR-OLD FEMALE HERE WITH ACUTE RESPIRATORY, REPORTS DOING MUCH BETTER. SOB WITH EXERTION, 4L NC. A&O X4, INDEPENDENT. URGE INCONTINENT. CBG'S AC/HS. CONTINUE TO MONITOR.
--- NOTE | 2021-12-25 04:45 | NUR ---
SHIFT SUMMARY; NO ACUTE MEDICAL CHANGES OVERNIGHT. THE PT GOT UP TO USE THE RESTROOM A FEW TIMES THROUGHOUT THE NIGHT AND TWICE SHE HAD EPISODES OF URGE INCONTINENCE. PT REPORTED HIP PAIN AROUND 2245, MEDICATED PER EMAR. PT WAS ABLE TO SLEEP SOUNDLY WITH NO S/SX OF ANY BREAKTHROUGH PAIN. PT CURRENTLY RESTING IN BED, BIPAP ON AND CONTINOUS BIOX ON. THE PT SATED 95-97% THROUGHOUT THE NIGHT. BED IN THE LOWEST POSITION AND CALL LIGHT IN HAND.
--- NOTE | 2021-12-25 18:17 | NUR ---
SHIFT SUMMARY PATIENT HAS BEEN COOPERATIVE AND PLEASENT WITH CARE. PATIENT HAS BEEN IND THIS SHIFT. PATIENT HAD TRILOGY MACHINE DELIVERED THIS SHIFT. PATIENT HAS NOT COMPLAINED OF PAIN, NAUSEA, SOB, OR VOMITTING THIS SHIFT. PATIENT HAS NOT HAD ACUTE EVENTS THIS SHIFT. VITAL SIGNS REVIEWED. BED IN LOWEST AND LOCKED POSITION. CALL LIGHT IN PLACE. WILL MONITOR UNTIL SHIFT CHANGE.
[2021-12-26 05:24] LABS: Albumin, Blood 2.7 g/dL (3.4-5.0); Anion Gap 3 mmol/L (6-16); Blood Urea Nitrogen 15 mg/dL (8-24); Bun/Creatinine Ratio 24.5 (12.0-20.0); CO2, Blood 43 mmol/L (21-32); Calcium, Blood 8.7 mg/dL (8.5-10.1); Chloride, Blood 95 mmol/L (98-108); Creatinine, Blood 0.61 mg/dL (0.40-1.00); Glomerular Filtration Rate 101 (60-); Glucose, Blood 105 mg/dL (70-99); Phosphorus, Blood 3.6 mg/dL (2.5-4.9); Potassium, Blood 3.7 mmol/L (3.5-5.5); Sodium, Blood 141 mmol/L (136-145)
--- NOTE | 2021-12-26 06:52 | NUR ---
SHIFT SUMMARY PATIENT ALERT AND ORIENTED. MEDICATED PER EMAR FOR PAIN. MEDICATED PER EMAR FOR PAIN. NO ACUTE ISSUES NOTED OVERNIGHT. CALL LIGHT WITHIN REACH. REPORT GIVEN TO ONCOMING RN.
--- NOTE | 2021-12-26 17:52 | NUR ---
SHIFT SUMMARY PATIENT IS ALERT AND ORIENTED. PATIENT HAS BEEN IND IN ROOM. PATIENT IS STILL ON 4L NC. BIPAP AT NIGHT. AWAITING PLACEMENT. PATIENT HAS BEEN ABOVE 95 PERCENT ON CONTINUOUS BIOX. NO ACUTE EVENTS THIS SHIFT. VITAL SIGNS REVIEWED. PATIENT HAS NOT COMPLAINED OF NAUSEA, VOMITTING, SOB OR PAIN THIS SHIFT. BED IN LOCKED AND LOWEST POSITION. CALL LIGHT IN PLACE. WILL MONITOR UNTIL SHIFT CHANGE.
[2021-12-26] MEDS ORDERED: NOVOLOG FL100 UNIT/3 SC ×2 (23:53→23:54)
[2021-12-26] MEDS ORDERED: Triamcinolone A15 G3 TOP (23:58)
--- NOTE | 2021-12-27 19:30 | NUR ---
SHIFT SUMMARY 61-YEAR-OLD FEMALE, A&O X4, INDEPENDENT IN ROOM. NO IV ACCESS ORDER. 4L O2 NC, BIPAP HS. DM WITH SHORT ACTING INSULIN 10 U AT MEALS. INSULIN HELD AFTER AM BS 87, PER DR DE LEON POST PRANDIAL CHECK WAS 245 AT 10 AM. PTN IMPROVED FROM ACUTE RESPIRATORY EPISODE. CONTINUE TO MONITOR.
--- NOTE | 2021-12-28 17:12 | NUR ---
SHIFT SUMMARY 61-YEAR-OLD FEMALE, A&O X4, INDEPENDENT IN ROOM. LUNGS HAVE CLEARED WITH SOB ON EXERTION. PTN ON 4L N/C, BIPAP HS, HER OWN. CONTINENT WITH URINARY URGENCY. PLAN FOR PLACEMENT OR HOUSING. LONG ACTING INSULIN CHANGE ORDER PLACED, STILL RUNS A LITTLE HIGH WITH SHORT ACTING COVERAGE. CBG'S AC/HS. SEEN BY DR DE LEON. CONTINUE TO MONITOR.
--- NOTE | 2021-12-29 03:42 | NUR ---
RAFTSMAN SUMMARY VSS. UP AD MEKA IN ROOM WITH O2 AT 4L/MIN WHILE ON NC, USES OWN CPAP WHEN IN BED. AWAKE ONCE DURING THE SHIFT, VOICED INCONT OF URINE. LINEN CHANGED AND NO FURTHER DIFFICULTIES NOTED. CALL LIGHT IN REACH. ANALGESIC ONCE FOR PAIN. CURRENTLY RESTING QUIETLY WITHOUT S/S ACUTE DISTRESS. CALL LIGHT IN ERACH. WILL CONTINUE TO MONITOR.
--- NOTE | 2021-12-29 20:06 | NUR ---
SHIFT SUMMARY PLEASANT 61-YEAR-0LD, A&O X4, INDEPENDENT IN ROOM. 4L NC, BIPAP HS. CONTINENT WITH SOME URGENCY. AC/HS CHECKS FOR BLOOD SUGARS, CONTROLLED THIS SHIFT. PLAN FOR HOUSING OR PLACEMENT, PTN IMPROVED. CONTINUE TO MONITOR.
--- NOTE | 2021-12-30 04:42 | NUR ---
SHIFT SUMMARY; PT IS AXO X4, PT UP AND AMBULATED TO THE BATHROOM INDEPENDENTLY MULTIPLE TIMES. PT HAD NO UREGENCY ACCIDENTS THROUGHOUT THE NIGHT. PT REMIANS ON 4L NC DURING THE DAY AND BIPAP AT NIGHT. PT PLEASANT AND COOPERATIVE WITH CARE THROUGHOUT THE NIGHT. PT REQUESTED LOTION BE APPLIED TO HER FEET, LOTION WAS APPLIED. NO ACUTE MEDICAL CHANGES THROUGHOUT THE NIGHT. PT CURRENLTY RESTING IN BED, CONTINOUS BIOX ON WHICH REMIANED ABOVE 94% THROUGHOUT THE NIGHT, BED IS IN THE LOWEST POSITION AND CALL LIGHT AT BEDSIDE. BLE EDEMA PRESENT, BLE ELEVATATED THROUGHOUT THE NIGHT WITH MINIMAL RESULTS. EDEMA REMAINS 2+ IN THE BLE.
--- NOTE | 2021-12-30 16:23 | NUR ---
SHIFT SUMMARY PATIENT IS ALERT AND ORIENTED. PATIENT HAS HAD NO ACUTE EVENTS THIS SHIFT. VITAL SIGNS REVIEWED. PATIENT IS STILL ON 4L NC. PATIENT HAS HAD NO COMPLAINTS OF PAIN, NAUSEA, VOMITTING OR SOB. PATIENT HAS BEEN IND IN ROOM. CONT BIOX ON ALL SHIFT, DOES NOT DESAT O2. BED IN LOCKED AND LOWEST POSITION. CALL LIGHT IN PLACE. WILL MONITOR UNTIL SHIFT CHANGE.
--- NOTE | 2021-12-31 05:45 | NUR ---
SHIFT SUMMARY PATIENT ALERT AND ORIENTED. MEDICATED PER EMAR FOR PAIN. HAD NO COMPLAINTS OF SHORTNESS OF BREATH. NO ACUTE ISSUES NOTED OVERNIGHT. CALL LIGHT WITHIN REACH. REPORT GIVEN TO ONCOMING RN.
--- NOTE | 2021-12-31 15:54 | NUR ---
SHIFT SUMMARY PATIENT IS ALERT AND ORIENTED. PATIENT HAS HAD NO ACUTE EVENTS THIS SHIFT. VITAL SIGNS REVIEWED. PATIENT HAS BEEN IND IN ROOM WITH NO INCIDENTS. PATIENT HAS BEEN WORKING WITH CASE MANAGEMENT ON DISCHARGE PLAN. POSSIBLE DISCHARGE TOMORROW TO SNF. PATIIENT HAS NOT COMPLAINED OF PAIN, NAUSEA OR SOB THIS SHIFT. BED IN LOWEST AND LOCKED POSITION. CALL LIGHT IN PLACE. WILL MONITOR UNTIL SHIFT CHANGE.
--- NOTE | 2021-12-31 19:51 | NUR ---
ON ASSESSMENT, VOICED CHEST PAIN IN CENTER OF CHEST, "SHARP" THAT RADIATED TO HER BACK, THEN A DULL PAIN TO HER LEFT NECK. VS TAKEN - VSS - SEE DOC FLOW SHEET. MD NOTIFIED. TROP LEVELS, 12 LEAD EKG AND MED TELE ORDERED. PAIN DECREASED. CALL LIGHT IN REACH
--- NOTE | 2021-12-31 20:08 | NUR ---
NORMAL EKG. PAIN SUBSIDED. CALL LIGHT IN REACH
--- NOTE | 2022-01-01 00:34 | NUR ---
REMAINS ASYMPTOMATIC. NO FURTHER C/O PAIN. CALL LIGHT IN REACH
--- NOTE | 2022-01-01 03:16 | NUR ---
SALES VENDOR SUMMARY AT SHIFT COMMENCE VOICED CHEST PAIN. DESCRIBED IT A SHARP BUBBLE THAT RADIATED TO HER BACK AND NECK. VSS. NOTIFIED, ORDERS FOR 12 LEAD, TROP LEVELS AND MED TELE. 12 LEAD NORMAL SINUS. TROP LEVELS WNL OF THIS WRITING. MED TELE SINUS. VOICED PAIN TRENDED DOWN QUICKLY. NO FURTHER C/O PAIN SINCE. HAS BEEN RESTING QUIETLY WITH NO NOTED S/S ACUTE DSTRESS. CALL LIGHT IN REACH. HAS BEEN UP AD MEKA WITHOUT VOICED COMPLAINT. WILL CONTINUE TO MONITOR
--- NOTE | 2022-01-01 16:41 | NUR ---
SHIFT SUMMARY PATIENT IS ALERT AND ORIENTED. PATIENT HAS BEEN IND ALL DAY. PATIENT HAS HAD NO ACUTE EVENTS THIS SHIFT. VITAL SIGNS REVIEWED. PATIENT HAS NOT COMPLAINED OF PAIN, NAUSEA, SOB OR VOMITTING THIS SHIFT. PATIENT APPEARS TO LOOK FORWARD TO PLACEMENT. BED IN LOWEST AND LOCKED POSITION. CALL LIGHT IN PLACE. WILL MONITOR UNTIL SHIFT CHANGE.
--- NOTE | 2022-01-02 03:13 | NUR ---
HOUSEKEEPER CLEANING COOKING SUMMARY VSS. UP TO BATHROOM A FEW TIMES, SOME STRESS INCONTINENCE. LINEN CHANGED. O2 AT 4L/MIN PER NC, AND PER CPAP AT NIGHT. SATS 90'S. VOICED FELT BETTER AT HS THAN "YESTERDAY". CURRENTLY RESTING QUIETLY WITHOUT NOTED S/S ACUTE DISRESS. CALL LIGHT IN REACH. WILL CONTINUE TO MONITOR
--- NOTE | 2022-01-02 11:02 | NUR ---
Spiritual Care request. Pt. is sitting up in chair talking with family on the phone. Pt. is unsettled about her brother who is in hospice care in [place]. Listen empathetically with a calming presence. The trauma of loss weighs heavy on the Pt. as their have been several seasonal losses. Pt. displays evidence of engagement and an awareness of her limitations. Brought comforting prayer to the Pt. Pt. displayed evidence of less stress, and verbalized gratitude for the spiritual care visit.
--- NOTE | 2022-01-02 14:59 | NUR ---
REPORT GIVEN TO ADAM CALLEJAS FOR TURN OVER OF CARE. INDEPENDENT IN ROOM USING FWW. NO S/S OF RESP DISTRESS ON 3L/M OF O2. RECEIVED INFORMATION ABOUT BROTHER DYING THIS MORNING AND HAS BEEN STRUGGLING WITH INFORMATION. PASTORAL CARE IN TO VISIT PT THIS MORNING.
--- NOTE | 2022-01-02 19:15 | NUR ---
SHIFT SUMMARY ASSUMED CARE OF PATIENT AT 1430. ALERT AND ORIENTED THROUGH AFTERNOON. INDEPENDENT IN ROOM WITH FWW AND 3L O2 VIA NC. AMBULATED IN HALLS WITH STAND BY ASSIST AND FOUR WHEEL WALKER. TOLERATING ADA DIET AND LIQUIDS. PLAN TO DISCHARGE 01/06 FOR ADMIT TO [facility].
--- NOTE | 2022-01-03 04:07 | NUR ---
RESOURCE MANAGER FORESTER SUMMARY: A&Ox4. PLEASANT AND COOPERATIVE WITH CARE. VSS. C/O BACK PAIN IN THE MIDDLE OF THE NIGHT AND OPTED TO SLEEP IN RECLINER. INDEPENDENT WITH TRANSFERS AND AMBULATION. VOIDING AND STOOLING WITHOUT DIFFICULTY. AWAITING PLACEMENT AT [facility] ON 01/06/22. WILL REPORT TO ONCOMING RN.
[2022-01-03 05:14] LABS: Albumin, Blood 2.7 g/dL (3.4-5.0); Anion Gap 5 mmol/L (6-16); Blood Urea Nitrogen 11 mg/dL (8-24); Bun/Creatinine Ratio 17.3 (12.0-20.0); CO2, Blood 37 mmol/L (21-32); Calcium, Blood 9.2 mg/dL (8.5-10.1); Chloride, Blood 99 mmol/L (98-108); Creatinine, Blood 0.64 mg/dL (0.40-1.00); Glomerular Filtration Rate 100 (60-); Glucose, Blood 131 mg/dL (70-99); Phosphorus, Blood 4.4 mg/dL (2.5-4.9); Potassium, Blood 3.9 mmol/L (3.5-5.5); Sodium, Blood 141 mmol/L (136-145)
--- NOTE | 2022-01-03 17:37 | NUR ---
PATIENT HAD MEDICATION CHANGES THIS SHIFT, INCLUDING INCREASE OF LASIX. LUNG SOUNDS WHEEZY WITH SOME SCATTERED CRACKLES. EDEMA IN LOWER EXTREMITY +2. ALBUMIN LAB LOW. PATIENT HAS SOME ITCHY SKIN ON HER BACK, WITH SMALL RED AREAS. SHE THINKS IT MAY BE MEDICATION RELATED. BLOOD SUGARS HAVE BEEN FAIRLY GOOD, WITH 10 UNITS OF FAST ACTING WITH EACH MEAL. PATIENT HAS NO COMPLAINTS AND MOOD IS GOOD. SHE IS LOOKING FORWARD TO MOVING OUT TO [facility] WHEN ABLE.
--- NOTE | 2022-01-04 04:23 | NUR ---
SHIFT SUMMARY PATIENT HAD NO ACUTE CHANGES OBSERVED. AX0X 4 AND INDEPENDENT WITH FWW TO BR. STRESS INCONTINENT AT TIMES. ON LASIX WITH URINARY URGENCY. NO IV ACCESS. REPORTED BACK PAIN X ONE AND NORCO GIVEN PER EMAR. DENIES CHEST PAIN AND N/V. ON 3L O2 NC. USES CPAP AT NIGHT. CBG 169. VSS/AFEBRILE. CALL LIGHT IN REACH. BED IN LOWEST POSITION. WILL CONTINUE TO MONITOR UNTIL DAY SHIFT NURSE ASSUMES CARE.
--- NOTE | 2022-01-04 19:17 | NUR ---
PT ON 3LPM OXYGEN. CONTINUES WITH URINARY URGENCY AND DRIBBLING ON FLOOR, EACH TIME PT STATES TO AMBULATE TO BATHROOM. LOOKING FORWARD TO MOVING TO [facility]. RECEIVED A SHOWER TODAY. NO ACUTE CHANGES. NO IV ACCESS.
--- NOTE | 2022-01-05 04:20 | NUR ---
SHIFT SUMMARY PATIENT HAD NO ACUTE CHANGES. AXOX 4 AND INDEPENDENT TO BR W/FWW. ON 3L O2 NC AND USES TRILOGY AT NIGHT. URINARY URGENCY ON LASIX WITH STRESS INCONTINENCE AT TIMES. NO IV ACCESS. REPORTED BACK PAIN X ONE AND NORCO GIVEN PER EMAR. SLEPT IN RECLINER MOST OF SHIFT BEFORE GOING BACK INTO BED. DENIES CHEST PAIN AND N/V. CBG 158. COOPERATIVE WITH CARE. CALL LIGHT IN REACH. BED IN LOWEST POSITION. WILL CONTINUE TO MONITOR UNTIL DAY SHIFT NURSE ASSUMES CARE.
--- NOTE | 2022-01-05 18:21 | NUR ---
SHIFT SUMMARY PATIENT ALERT AND ORIENTED THROUGHOUT SHIFT. AMBULATES INDEPENDENTLY WITH FWW TO TOILET. TAKES OCCASIONAL WALKS IN HALLS. WEARS 3L O2 VIA NC AT BASELINE. VOIDING WELL, FREQUENT URINATION WITH URGENCY AND DRIBBLING. PLAN FOR DISCHARGE TOMORROW 01/06/22 TO [facility].
--- NOTE | 2022-01-06 04:15 | NUR ---
SHIFT SUMMARY ADMITTED FOR COPD EXACERBATION. FULL CODE. PLAN IS FOR DC TO [facility], [facility] TODAY. SHE IS ON 3 LPM O2 @ BASELINE, TRILOGY AT NIGHT. SHE HAS STRESS INCONTINENCE. SHE IS INDEPENDENT IN ROOM. A&O X4. ACHS CHEMSTICKS.
[2022-01-06] MEDS ORDERED: DOCUZEN 8.6-501 EACH PO (11:59)
[2022-01-06] MEDS ORDERED: FURO40 PO (12:00)
[2022-01-06] MEDS ORDERED: AIRDUO DIGIHAL1 EAC2 INH (12:00)
[2022-01-06] MEDS ORDERED: VITAMIN D31000 UNI1 PO (12:01)
[2022-01-06] MEDS ORDERED: POTCHL20ER PO (12:01)
[2022-01-06] MEDS ORDERED: MICO100S TOP (12:01)
--- NOTE | 2022-01-06 12:44 | NUR ---
DISCHARGE SUMMARY PATIENT ALERT AND ORIENTED. INDEPENDENT IN ROOM WITH O2 AND FWW. TOLERATING ADA DIET AND LIQUIDS. DISCHARGE ORDERS GIVEN. PORTABLE OXYGEN TANK DELIVERED FROM [facility]. TRANSPORT SET UP FOR 1330 TO [facility].
--- NOTE | 2022-01-06 14:18 | NUR ---
DISCHARGE PATIENT LEFT UNIT AT 1345 VIA WHEELCHAIR FOR TRANSPORT TO SNF.
== END 2022-01-06 14:56 | disposition home or self-care (01) | DRG 189 ==
LOC: ER 21:11 → PCU 12-13 05:09 → MEDS 12-13 05:09 → PCU 12-13 05:56 → MEDS 12-19 04:03
PROVIDERS: Family Medicine; Internal Medicine; Student in an Organized Health Care Education/Training Program; ADMIT Internal Medicine
PROC: 5A09357 Assistance with Respiratory Ventilation, Less than 24 Consecutive Hours, Continuous Positive Airway Pressure (ICD-10-PCS; principal; 2021-12-13)
PROC: 5A09357 Assistance with Respiratory Ventilation, Less than 24 Consecutive Hours, Continuous Positive Airway Pressure (ICD-10-PCS; 2021-12-18)
PROC: 5A09457 Assistance with Respiratory Ventilation, 24-96 Consecutive Hours, Continuous Positive Airway Pressure (ICD-10-PCS; 2021-12-22)
DX: J96.21 Acute and chronic respiratory failure with hypoxia (principal); G92.9 Unspecified toxic encephalopathy; J18.9 Pneumonia, unspecified organism; J44.0 Chronic obstructive pulmonary disease with (acute) lower respiratory infection; E66.2 Morbid (severe) obesity with alveolar hypoventilation; E87.29 Other acidosis; N39.0 Urinary tract infection, site not specified; Z68.42 Body mass index [BMI] 45.0-49.9, adult; J44.1 Chronic obstructive pulmonary disease with (acute) exacerbation; J96.22 Acute and chronic respiratory failure with hypercapnia; I27.20 Pulmonary hypertension, unspecified; I11.0 Hypertensive heart disease with heart failure; E78.5 Hyperlipidemia, unspecified; M19.90 Unspecified osteoarthritis, unspecified site; E03.9 Hypothyroidism, unspecified; B95.2 Enterococcus as the cause of diseases classified elsewhere; I50.9 Heart failure, unspecified; E11.65 Type 2 diabetes mellitus with hyperglycemia; E11.40 Type 2 diabetes mellitus with diabetic neuropathy, unspecified; Z90.49 Acquired absence of other specified parts of digestive tract; Z98.890 Other specified postprocedural states; Z88.8 Allergy status to other drugs, medicaments and biological substances; Z79.4 Long term (current) use of insulin; Z79.84 Long term (current) use of oral hypoglycemic drugs; Z79.899 Other long term (current) drug therapy; Z87.891 Personal history of nicotine dependence; Z59.00 Homelessness unspecified
CPT/HCPCS: 36415; 36600; 71045; 80048; 80053; 80069; 81001; 82803; 82947; 83735; 83880; 84145; 84484; 85025; 85027; 87077; 87086; 87186; 93005; 93010; 93306; 94640; 94644; 94660; 94664; 94667; 94668; 94760; 94762; 96365; 96375; 97110; 97116; 97162; 97530; 99285-25; A9270; C1751; J0295; J0360; J0696; J1650; J1815; J2920; J2930; J7030; J7512

== ENCOUNTER 2022-06-18 18:31 | Emergency (ER) | payer MEDICARE, OTHER ==
[~2022-06-18] VITALS: Ht 160 cm; Wt 142.4 kg
[2022-06-18 18:31] VITALS: BP 147/61
[~2022-06-18 18:31] MED LIST changes: +AIRDUO DIGIHAL1 EAC2 INH; +ALBU2.5V5 NEB; +AZIT250 PO; +BUPR150ER PO; +CEPH500 PO; +DOCUZEN 8.6-501 EACH PO; +FURO40 PO; +LEVSOD25 PO; +METPRE4DP PO; +MICO100S TOP; +MYRBETRIQ25 MG PO; +NOVOLOG FL100 UNIT/3 SC; +POTCHL20ER PO; +Triamcinolone A15 G3 TOP; +VITAMIN D31000 UNI1 PO
[2022-06-18] MEDS ORDERED: GABA600 PO (18:56)
[2022-06-18] MEDS ORDERED: Norco 5-325 Ta1 EACH PO (18:57)
[2022-06-18] MEDS ORDERED: MYRBETRIQ25 MG PO (18:58)
[2022-06-18] MEDS ORDERED: Neurontin 300300 MG PO (22:18)
== END 2022-06-18 23:22 | disposition home or self-care (01) ==
LOC: ER 18:31
DX: M79.671 Pain in right foot (principal); M79.672 Pain in left foot; G62.9 Polyneuropathy, unspecified; Z88.8 Allergy status to other drugs, medicaments and biological substances; Z79.899 Other long term (current) drug therapy; Z79.84 Long term (current) use of oral hypoglycemic drugs; Z79.4 Long term (current) use of insulin; J44.9 Chronic obstructive pulmonary disease, unspecified; E78.5 Hyperlipidemia, unspecified; E11.9 Type 2 diabetes mellitus without complications; J45.909 Unspecified asthma, uncomplicated
CPT/HCPCS: 93971; 99284-25; A9270

== ENCOUNTER 2024-06-26 12:49 | Emergency (ER) | payer MEDICARE ==
[~2024-06-26] VITALS: Ht 160 cm; Wt 138.8 kg
[~2024-06-26 12:49] MED LIST changes: +GABA600 PO; +Neurontin 300300 MG PO
[2024-06-26 13:55] LABS: CORONAVIRUS COVID-19 AG Negative (NEGATIVE); INFLUENZA A AG Negative (NEGATIVE); INFLUENZA B AG Negative (NEGATIVE)
[2024-06-26 14:50] LABS: BASOPHILS ABSOLUTE AUTO 0.06 K/mm3 (0.00-0.23); BASOPHILS PERCENT AUTO 0 % (0-2); EOSINOPHILS ABSOLUTE AUTO 0.05 K/mm3 (0.00-0.68); EOSINOPHILS PERCENT AUTO 0 % (0-6); Hematocrit 36.2 % (33.0-51.0); Hemoglobin 11.2 g/dL (11.5-16.0); IMMATURE GRAN ABSOLUTE AUTO 0.09 K/mm3 (0.00-0.10); IMMATURE GRAN PERCENT AUTO 1 % (0-1); LYMPHOCYTES ABSOLUTE AUTO 2.94 K/mm3 (0.84-5.20); LYMPHOCYTES PERCENT AUTO 16 % (21-46); MONOCYTES ABSOLUTE AUTO 1.03 K/mm3 (0.16-1.47); MONOCYTES PERCENT AUTO 6 % (4-13); Mean Corpuscular HGB 27.4 pg (26.0-34.0); Mean Corpuscular HGB Conc 30.9 g/dL (31.5-36.5); Mean Corpuscular Volume 89 fL (80-100); Mean Platelet Volume 9.7 fL (9.1-12.4); NEUTROPHILS ABSOLUTE AUTO 14.37 K/mm3 (1.96-9.15); NEUTROPHILS PERCENT AUTO 77 % (41-73); Platelet Count 273 K/mm3 (150-400); RDW Coefficient Variation 14.1 % (11.7-14.2); RDW Standard Deviation 45.1 fL (35.1-46.3); Red Blood Cell Count 4.09 M/mm3 (3.80-5.20); White Blood Cell Count 18.54 K/mm3 (4.00-11.30)
[2024-06-26] MEDS ORDERED: PredniSONE 20 MG Tab PO ONE (15:25)
[2024-06-26] MEDS ORDERED: Ipratropium/Albuterol SulF 2.5-0.5MG/3 ML Amp INH ONE (15:25)
[2024-06-26] MEDS ORDERED: Amoxicillin/Clavulanate K 875 MG Tab PO ONE (15:25)
[2024-06-26 15:31] LABS: Albumin, Blood 3.4 g/dL (3.4-5.0); Albumin/Globulin Ratio 0.8 (0.8-1.8); Bilirubin, Total 0.6 mg/dL (0.1-1.0); Bun/Creatinine Ratio 20.2 (12.0-20.0); Calcium, Blood 9.2 mg/dL (8.5-10.1); Creatinine, Blood 0.74 mg/dL (0.40-1.00); Globulin, Blood 4.5 g/dL (2.2-4.0); Potassium, Blood 3.7 mmol/L (3.5-5.5); Total Protein, Blood 7.9 g/dL (6.4-8.2)
[2024-06-26 16:00] VITALS: BP 136/74
[2024-06-26] MEDS ORDERED: ALBU2.5V5 INH (16:41)
[2024-06-26] MEDS ORDERED: AMOCLA875 PO (16:41)
[2024-06-26] MEDS ORDERED: Prednisone20 MG PO (16:41)
== END 2024-06-26 17:38 | disposition home or self-care (01) ==
LOC: ER 12:49
PROVIDERS: Physician Assistant
DX: J44.1 Chronic obstructive pulmonary disease with (acute) exacerbation (principal); I10 Essential (primary) hypertension; E11.9 Type 2 diabetes mellitus without complications; E78.5 Hyperlipidemia, unspecified; Z99.81 Dependence on supplemental oxygen; Z88.6 Allergy status to analgesic agent; Z79.4 Long term (current) use of insulin; Z79.84 Long term (current) use of oral hypoglycemic drugs; Z79.890 Hormone replacement therapy; Z79.899 Other long term (current) drug therapy
CPT/HCPCS: 71046; 80053; 85025; 87428-QW; 94640; 94664; 99285-25; A9270; J7512

== ENCOUNTER → 2024-09-27 | Outpatient (CLI) | payer MEDICARE ==
[~2024-09-27] MED LIST changes: +ALBU2.5V5 INH; +AMOCLA875 PO; +CEFP200 PO; +Prednisone20 MG PO; -ROFL500T; +ROFL500T PO; +ROFLUMILAST250 MCG PO
== END | disposition home or self-care (01) ==
LOC: LAB 17:26 → LAB SHORT 17:26
DX: L03.311 Cellulitis of abdominal wall (principal)
CPT/HCPCS: 87070; 87075; 87077; 87186; 87205

== ENCOUNTER → 2024-11-13 | Outpatient (CLI) | payer MEDICARE | LOC: LAB 08:00 → LAB SHORT 08:00 | DX: R04.2 Hemoptysis (principal) | CPT/HCPCS: 87070; 87077; 87186; 87205 ==

== ENCOUNTER → 2024-11-15 | Outpatient (CLI) | payer MEDICARE | LOC: LAB 08:53 → LAB SHORT 08:53 | DX: R04.2 Hemoptysis (principal) | CPT/HCPCS: 87070; 87077; 87186; 87205 ==

== ENCOUNTER → 2024-12-08 | Outpatient (CLI) | payer MEDICARE | LOC: LAB SHORT 14:00 → LAB 14:00 | DX: J85.0 Gangrene and necrosis of lung (principal) | CPT/HCPCS: 87070; 87205 ==